=== PATIENT | female | born 1965 | race Caucasian/White ===

== ENCOUNTER 2017-08-21 08:48 | Outpatient (CLI) | payer OTHER ==
--- NOTE | 2017-08-21 11:01 | MRI ---
MRI OF THE LEFT ANKLE WITHOUT CONTRAST: Date: 08/21/17 INDICATION: History of left ankle surgery in 2011 with left ankle pain. COMPARISON: Radiographs from [facility] dated 11/17/10. FINDINGS: There is susceptibility artifact from a screw situated within the sinus tarsi. A small amount of flui d is seen within the FHL tendon sheath, which can be within normal limits. There is some mild tendino sis involving the distal posterior tibials tendon. The peroneal tendons appear normal. The Achilles t endon is intact. No osteochondral defect is evident. The syndesmotic ligaments appear intact. The ATF L demonstrates some mild thickening which may reflect sequelae of chronic partial thickness tear. Brian caneofibular ligament is intact. Calcaneofibular ligament is mildly thickened. The posterior talofibu lar ligament is intact. Deep deltoid ligament is intact. Extensor tendons are normal appearing. IMPRESSION: 1. Postoperative change consisting of a screw within the region of the sinus tarsi producing promine nt susceptibility artifact. 2. Mild tendinosis of the distal posterior tibialis tendon. 3. 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 POS: [facility]
== END 2017-08-21 08:49 | disposition home or self-care (01) ==
LOC: TBSIIMAG 08:48
PROVIDERS: ATTEND Podiatrist
DX: M20.32 Hallux varus (acquired), left foot (principal); M13.872 Other specified arthritis, left ankle and foot; M20.22 Hallux rigidus, left foot; T84.197A Other mechanical complication of internal fixation device of bone of left lower leg, initial encounter; M76.822 Posterior tibial tendinitis, left leg; Z98.890 Other specified postprocedural states